=== PATIENT | female | born 1955 | race Caucasian/White ===

== ENCOUNTER 2016-12-17 08:58 | Emergency (ER) | payer OTHER ==
--- NOTE | ~2016-12-17 | CR72 ---
[facility] A Service of [facility] & [facility] RADIOLOGY TEXT RESULTS PATIENT: MICHELLE HOLLOWAY LOCATION: [facility] : 57 UNIT #: [id number] AGE: [address]: Roosevelt Keys MD SEX: F ORDER DR: [id number] [facility] [address] [place], [place] [address] [id number] MR#: [id number] Acc #: [id number] NAME: MICHELLE HOLLOWAY : 1955 SEX: F STUDY DATE/TIME: 12/17/2016 8:42 UNIT: [facility] ROOM: STUDY DESCRIPTION: CR Chest Single View Portable Attending Physician: Roosevelt Keys M.D. Ordering Physician: Mercedes Roth M.D. Primary Care Physician: Robert Quintana M.D. MEDICAL IMAGING REPORT This report is preliminary unless electronic signature is present EXAM Single view chest INDICATION Shortness of air. Fever and chills. FINDINGS Single portable AP view of the chest compared to 05/16/2015. Heart and mediastinal contours are unchanged. There is background COPD. No focal consolidation. No pneumothorax or pleural effusion. IMPRESSION No acute cardiopulmonary findings. COPD. Dictated by... Arturo Berumen M.D. THIS IS AN ELECTRONICALLY VERIFIED REPORT Arturo Berumen M.D. at 12/18/2016 2:09 PM MERLENE/tamika TD: 12/17/2016 17:39 JOB #: [id number] MEDICAL IMAGING REPORT Page 1 of 1 COPY
--- NOTE | ~2016-12-17 | NM69 ---
[facility] A Service of [facility] RADIOLOGY TEXT RESULTS PATIENT: MICHELLE HOLLOWAY LOCATION: [facility] : 57 UNIT #: [id number] AGE: [address]: Roosevelt Keys MD SEX: F ORDER DR: [id number] [facility] [address] [place], [place] [address] [id number] E MR#: [id number] Acc #: [id number] NAME: MICHELLE HOLLOWAY : 1955 SEX: F STUDY DATE/TIME: 12/17/2016 14:40 UNIT: [facility] ROOM: STUDY DESCRIPTION: NM Pulm Vent and Perf Attending Physician: Roosevelt Keys M.D. Ordering Physician: Mercedes Roth M.D. Primary Care Physician: Robert Quintana M.D. MEDICAL IMAGING REPORT This report is preliminary unless electronic signature is present EXAM V/Q lung scan HISTORY COPD and shortness of air for 4 days. FINDINGS Ventilation scan was performed with 35.5 mCi technetium DTPA. Perfusion scan was performed with 5.9 mCi technetium MAA. There is heterogeneous tracer uptake in both lungs on the ventilation scan, compatible with emphysema, as noted on prior chest CT 05/12/2015. There is relatively homogeneous tracer uptake in both lungs on the perfusion scans, with subsegmental perfusion defects in the mid and upper lungs, less conspicuous than on the ventilation scans. No moderate-sized or large perfusion defect. IMPRESSION Low probability of pulmonary embolus. Dictated by... Pritesh Zhu M.D. THIS IS AN ELECTRONICALLY VERIFIED REPORT Pritesh Zhu M.D. at 12/17/2016 10:53 PM DFL/tyson TD: 12/17/2016 20:12 JOB #: [id number] MEDICAL IMAGING REPORT Page 1 of 1 COPY
--- NOTE | ~2016-12-17 | EKG ---
PATIENT: MICHELLE HOLLOWAY UNIT #: [id number] Ventricular Rate: 102 BPM Atrial Rate: 102 BPM P-R Interval: 128 ms QRS Duration: 74 ms Q-T Interval: 326 ms QTC Calculation(Bezet): 424 ms P Spangler: 79 degrees Calculated R Spangler: 60 degrees Calculated T Spangler: 35 degrees Diagnosis Line: Sinus tachycardia Diagnosis Line: Right atrial enlargement Diagnosis Line: Nonspecific ST abnormality Diagnosis Line: Otherwise normal ECG Diagnosis Line: When compared with ECG of 14-MAY-2015 06:44, Diagnosis Line: Fusion complexes are now Present Diagnosis Line: HI interval has increased Diagnosis Line: Criteria for Inferior infarct are no longer Diagnosis Line: Present Diagnosis Line: QT has shortened Diagnosis Line: Confirmed by TERESE MTZ MD ([id number]) on 12/17/2016 Diagnosis Line: 2:51:34 PM INTERPRETING MD: BIBI SNIDER
[~2016-12-17 08:58] MED LIST: ACETAMINOPHEN PO; ALBUTEROL17 GM INH; ALPRAZOLAM PO; AMBIEN PO; AMLODIPINE BES2.5 MG PO; ASPIRIN81 M2 PO; ASPIRINEC PO; ATENOLOL50 MG PO; FLAGYL PO; FLEXERIL PO; GUAIFENESIN PO; HYDRALAZINE HCL25 MG PO; IMDUR-ER30 M1 PO; LEVAQUIN PO; LISINOPRIL PO; LISINOPRIL20 MG PO; LOC PO; LORTAB 7.5-5001 TAB PO; NEURONTIN600 MG PO; NEURONTIN800 MG PO; NORCO 7.5/325 T1 TAB PO; NORVASC PO; PERCODAN TABLET1 TAB PO; PHENERGAN PO; PHENERGAN PR; PHENERGAN25 M1 PO; PHENERGAN25 MG PO; PLAVIX PO; SIMVASTATIN20 MG PO; TYLENOL #3 PO; TYLOX 5/500 CAP1 CAP PO; ZESTORETIC 20/21 TAB PO; ZESTRIL30 MG PO
[2016-12-17 09:12] LABS: BASOPHIL% 0.4 % (0-2.5); EOSINOPHIL# 0.4 X10e3 (0-0.7); HEMATOCRIT 42.7 % (35.0-45.0); HEMOGLOBIN 14.1 gm/dL (12.0-16.0); LYMPHOCYTE# 1.2 X10e3 (1.0-3.5); LYMPHOCYTE% 11.7 % (17.0-45.0); MEAN CELL VOLUME 90.9 FL (83-96); MEAN CORPUSCULAR HEMOGLOBIN 30.1 PG (28-34); MEAN CORPUSCULAR HGB CONC 33.1 g/dL (30-36); MEAN PLATELET VOLUME 8.7 FL (6.5-11.5); MONOCYTE# 1.1 X10e3 (0-1.0); MONOCYTE% 10.7 % (3.0-12.0); NEUTROPHIL# 7.2 X10e3 (1.5-7.1); NEUTROPHIL% 73.2 % (40-75); PLATELET COUNT 219 X10e3 (140-420); RED CELL DISTRIBUTION WIDTH 13.9 % (11.0-15.5); WHITE BLOOD COUNT 9.8 X10e3 (4.0-10.5)
[2016-12-17 09:13] LABS: DIFF IND NO
[2016-12-17 09:14] LABS: POC - CKMB 3.4 ng/mL (0.0-7.9); POC - TROPONIN <0.05 ng/mL (<=0.05)
[2016-12-17] MEDS ORDERED: NEURONTIN600 MG PO (09:33)
[2016-12-17] MEDS ORDERED: ZESTRIL40 MG PO (09:33)
[2016-12-17] MEDS ORDERED: TRAZODONE HCL100 MG PO (09:34)
[2016-12-17 09:35] LABS: INFLUENZA A NEG (NEG); INFLUENZA B NEG (NEG)
[2016-12-17 09:54] LABS: ALCOHOL BLOOD <5 mg/dL (0); ALKALINE PHOSPHATASE 79 U/L (32-92); ALT (SGPT) 65 U/L (10-40); AST (SGOT) 56 U/L (10-42); BILIRUBIN, DIRECT 0.2 mg/dL (0.0-0.2); BILIRUBIN,INDIRECT 0.3 mg/dL (0.0-0.9); BILIRUBIN,TOTAL 0.5 mg/dL (0.2-2.0); BLOOD UREA NITROGEN 31 mg/dL (9-23); BUN/CREATININE RATIO 23.84; CALCIUM SERUM 9.8 mg/dL (8.4-10.2); CARBON DIOXIDE 25 mmol/L (22-31); CHLORIDE 100 mmol/L (100-111); CREATININE SERUM 1.3 mg/dL (0.6-1.4); GLOM FILT RATE Estimated 44.6 mL/min (>60); GLUCOSE FASTING 96 mg/dL (70-110); POTASSIUM 4.5 mmol/L (3.5-5.1); SODIUM 136 mmol/L (135-145)
[2016-12-17 10:01] LABS: URINE SOURCE CLEAN CATCH
[2016-12-17 10:14] LABS: URINE APPEARANCE CLEAR; URINE BILIRUBIN NEG (NEG); URINE BLOOD 1+ (NEG); URINE COLOR YELLOW; URINE GLUCOSE NEG (NEG); URINE KETONE TRACE (NEG); URINE LEUKOCYTE ESTERASE TRACE (NEG); URINE NITRATE NEG (NEG); URINE PH 5.5 (5-8); URINE PROTEIN 2+ (NEG); URINE SPECIFIC GRAVITY 1.018 (1.003-1.035)
[2016-12-17 10:16] LABS: CULTURE INDICATED? YES; URINE BACTERIA AUWI 1+ (NEGATIVE); URINE SQUAMOUS EPITHELIAL CELL OCC /[HPF]
[2016-12-17 10:25] LABS: AMPHETAMINE NEG (NEG); BARBITURATES NEG (NEG); BENZODIAZEPINES NEG (NEG); COCAINE NEG (NEG); MARIJUANA POS (NEG); OPIATES NEG (NEG); TRICYCLIC ANTIDEPRESSANTS NEG (NEG); U METHADONE NEG (NEG)
[2016-12-17 10:43] LABS: POC - CKMB 1.9 ng/mL (0.0-7.9); POC - TROPONIN <0.05 ng/mL (<=0.05)
== END 2016-12-17 15:11 | disposition home or self-care (01) ==
LOC: CED 08:58
PROVIDERS: Emergency Medicine
DX: J44.1 Chronic obstructive pulmonary disease with (acute) exacerbation (principal); I10 Essential (primary) hypertension; F17.210 Nicotine dependence, cigarettes, uncomplicated; Z98.890 Other specified postprocedural states
CPT/HCPCS: 36415; 71010; 78582; 80048; 80076; 80307; 81003; 82553; 83605; 83880; 84484; 85025; 87040; 87086; 87804; 93005; 96365; 99284; A9540; A9567; G0480; J0456; J0696

== ENCOUNTER → 2017-01-22 | Outpatient (CLI) | payer OTHER ==
[~2017-01-22] MED LIST changes: +TRAZODONE HCL100 MG PO; +ZESTRIL40 MG PO
--- NOTE | ~2017-01-22 | US5 ---
[facility] A Service of [facility] RADIOLOGY TEXT RESULTS PATIENT: MICHELLE HOLLOWAY LOCATION: [facility] : 57 UNIT #: [id number] AGE: [address]: Wesly Fonseca MD SEX: F ORDER DR: [id number] [place], [place] [address] [id number] O MR#: [id number] Acc #: [id number] NAME: MICHELLE HOLLOWAY : 1955 SEX: F STUDY DATE/TIME: 01/22/2017 10:23 UNIT: [facility] ROOM: STUDY DESCRIPTION: US Abdominal Complete Attending Physician: Wesly Fonseca III, M.D. Referring Physician: Wesly Fonseca III, M.D. Ordering Physician: Wesly Fonseca III, M.D. Primary Care Physician: Robert Quintana M.D. MEDICAL IMAGING REPORT This report is preliminary unless electronic signature is present EXAM Abdominal ultrasound INDICATION Hepatitis C. 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 Patient reports right upper quadrant abdominal pain intermittently for the past 3 years. PROCEDURE [facility]-scale and Doppler imaging of the abdomen. COMPARISON CT from 05/12/2015. FINDINGS Visualized portions of the pancreas are unremarkable. Inferior vena cava is unremarkable. Atherosclerotic irregularity in the abdominal aorta. The liver has homogeneous echotexture. No liver mass is seen on submitted images. Liver measures 11.9 cm. Unremarkable gallbladder. Common duct measures 7 mm. The right kidney measures 9 cm in length with no hydronephrosis. Spleen measures 8.3 cm. Left kidney measures 10 cm. No hydronephrosis. IMPRESSION 1. No acute findings. 2. The liver is not frankly cirrhotic by ultrasound and there is no liver mass. 3. Atherosclerotic irregularity of the abdominal aorta. Dictated by... Amaury Odell M.D. [facility] A Service of [facility] RADIOLOGY TEXT RESULTS PATIENT: MICHELLE HOLLOWAY LOCATION: [facility] : 57 UNIT #: [id number] AGE: [address]: Wesly Fonseca MD SEX: F ORDER DR: THIS IS AN ELECTRONICALLY VERIFIED REPORT Amaury Odell M.D. at 01/25/2017 7:05 AM Nadia TD: 01/22/2017 15:18 JOB #: [id number] MEDICAL IMAGING REPORT Page 1 of 1 COPY
== END | disposition home or self-care (01) ==
LOC: CGUS 10:03
DX: B18.2 Chronic viral hepatitis C (principal); I70.0 Atherosclerosis of aorta
CPT/HCPCS: 76700